=== PATIENT | male | born 1990 | race Caucasian/White ===

== ENCOUNTER 2017-12-10 11:16 | Emergency (ER) | payer OTHER ==
[~2017-12-10] VITALS: Ht 167.6 cm; Wt 94.8 kg
[2017-12-10 11:22] VITALS: BP 121/78
[2017-12-10] MEDS ORDERED: CLONAZEPAM 1 MG1 M1 PO ×2 (11:24→11:55)
== END 2017-12-10 12:15 | disposition home or self-care (01) ==
LOC: ER 11:16
DX: F41.9 Anxiety disorder, unspecified (principal); Z76.0 Encounter for issue of repeat prescription; Z88.6 Allergy status to analgesic agent

== ENCOUNTER 2018-05-20 13:53 | Emergency (ER) | payer BC, OTHER ==
[~2018-05-20] VITALS: Ht 182.9 cm; Wt 99.8 kg
[~2018-05-20 13:53] MED LIST: CLONAZEPAM 1 MG1 M1 PO
[2018-05-20] MEDS ORDERED: CLONAZEPAM 1 MG1 M1 PO (14:30)
[2018-05-20 15:03] VITALS: BP 131/95
== END 2018-05-20 14:57 | disposition home or self-care (01) ==
LOC: ER 13:53
DX: F41.9 Anxiety disorder, unspecified (principal); Z76.0 Encounter for issue of repeat prescription; F17.200 Nicotine dependence, unspecified, uncomplicated; Z88.8 Allergy status to other drugs, medicaments and biological substances

== ENCOUNTER 2018-08-02 00:22 | Emergency (ER) | payer BC, OTHER ==
[~2018-08-02] VITALS: Ht 185.4 cm; Wt 104.3 kg
[2018-08-02] MEDS ORDERED: EPIDIOLEX100 MG/1 M PO (00:35)
[2018-08-02] MEDS ORDERED: XANAX1 MG PO (01:37)
[2018-08-02] MEDS ORDERED: CLONAZEPAM 1 MG1 M1 PO (02:14)
[2018-08-02 02:38] VITALS: BP 132/76
== END 2018-08-02 02:41 | disposition home or self-care (01) ==
LOC: ER 00:22
DX: F41.9 Anxiety disorder, unspecified (principal); Z76.0 Encounter for issue of repeat prescription; F17.210 Nicotine dependence, cigarettes, uncomplicated; Z88.6 Allergy status to analgesic agent

== ENCOUNTER 2019-01-17 08:56 | Emergency (ER) | payer BC, OTHER ==
[~2019-01-17] VITALS: Ht 185.4 cm; Wt 101.6 kg
[~2019-01-17 08:56] MED LIST changes: +EPIDIOLEX100 MG/1 M PO; +XANAX1 MG PO
[2019-01-17] MEDS ORDERED: CLONAZEPAM 1 MG1 M1 PO (09:00)
[2019-01-17 09:55] LABS: URINE BILIRUBIN NEGATIVE (Negative); URINE BLOOD NEGATIVE (Negative); URINE CLARITY SL CLOUDY; URINE COLOR YELLOW; URINE GLUCOSE-RANDOM* NEGATIVE (Negative); URINE KETONES NEGATIVE (Negative); URINE LEUKOCYTES-REFLEX NEGATIVE (Negative); URINE NITRITE-REFLEX NEGATIVE (Negative); URINE PROTEIN (DIPSTICK) NEGATIVE (Negative); URINE SPECIFIC GRAVITY 1.015 (1.005-1.035); URINE UROBILINOGEN 0.2 E.U./dl (0.2-1.0)
[2019-01-17 10:19] LABS: ABSOLUTE NEUTROPHILS 5.7 thou/uL (1.4-8.2); BASOPHILS 1.2 % (0.0-2.0); EOSINOPHILS 3.5 % (0.0-3.0); HEMATOCRIT 45.2 % (42.0-52.0); HEMOGLOBIN 15.6 gm/dL (14.0-18.0); MCH 29.6 pg (26.0-34.0); MCHC 34.6 g/dL (28.0-37.0); MCV 85.5 fL (80.0-100.0); MONOCYTES 6.9 % (1.0-8.0); PLATELET COUNT 230 thou/uL (150-400); POLYS 67.4 % (36.0-66.0); RBC 5.29 mil/uL (4.50-6.00); RDW 13.7 % (10.5-14.5); WBC 8.4 thou/uL (4.0-11.0)
[2019-01-17 10:27] LABS: CALCIUM 8.8 mg/dL (8.5-10.1); CREATININE 0.9 mg/dL (0.7-1.3)
[2019-01-17 10:33] LABS: ALBUMIN 3.8 g/dL (3.4-5.0); TOTAL BILIRUBIN 0.6 mg/dL (<0.1-1.0); TOTAL PROTEIN 7.3 g/dL (6.4-8.2)
[2019-01-17] MEDS ORDERED: NAPROSYN500 MG PO (11:20)
[2019-01-17] MEDS ORDERED: PREDNISONE 20 M20 MG PO (11:20)
[2019-01-17] MEDS ORDERED: LIORESAL 10 MG10 MG PO (11:20)
[2019-01-17 11:27] VITALS: BP 130/89
== END 2019-01-17 11:28 | disposition home or self-care (01) ==
LOC: ER 08:56
PROVIDERS: Emergency Medicine
DX: M54.31 Sciatica, right side (principal); F41.9 Anxiety disorder, unspecified; Z88.6 Allergy status to analgesic agent

== ENCOUNTER 2019-04-19 19:32 | Emergency (ER) | payer BC, OTHER ==
[~2019-04-19] VITALS: Ht 185.4 cm; Wt 99.8 kg
[~2019-04-19 19:32] MED LIST changes: +LIORESAL 10 MG10 MG PO; +NAPROSYN500 MG PO; +PREDNISONE 20 M20 MG PO
[2019-04-19 20:35] VITALS: BP 129/81
== END 2019-04-19 20:37 | disposition home or self-care (01) ==
LOC: ER 19:32
DX: F41.0 Panic disorder [episodic paroxysmal anxiety] (principal); Z88.6 Allergy status to analgesic agent

== ENCOUNTER 2019-11-28 16:53 | Emergency (ER) | payer OTHER ==
[~2019-11-28] VITALS: Ht 185.4 cm; Wt 99.8 kg
[2019-11-28] MEDS ORDERED: CLONAZEPAM 1 MG1 M1 PO (17:04)
[2019-11-28 17:47] LABS: ABSOLUTE NEUTROPHILS 7.5 thou/uL (1.4-8.2); BASOPHILS 0.6 % (0.0-2.0); EOSINOPHILS 1.6 % (0.0-3.0); HEMOGLOBIN 16.1 gm/dL (14.0-18.0); LYMPHOCYTES 21.5 % (24.0-44.0); MCH 29.6 pg (26.0-34.0); MCHC 34.4 g/dL (28.0-37.0); MCV 86.1 fL (80.0-100.0); MONOCYTES 3.8 % (1.0-8.0); PLATELET COUNT 236 thou/uL (150-400); POLYS 72.5 % (36.0-66.0); RBC 5.45 mil/uL (4.50-6.00); RDW 13.3 % (10.5-14.5); WBC 10.3 thou/uL (4.0-11.0)
[2019-11-28 17:55] LABS: ANION GAP 8 mmol/L (7-16); BUN 14 mg/dL (7-18); CHLORIDE 101 mmol/L (98-107); CO2 27 mmol/L (21-32); CREATININE 1.1 mg/dL (0.7-1.3); GLUCOSE 140 mg/dL (74-106); POTASSIUM 4.5 mmol/L (3.5-5.1); SODIUM 136 mmol/L (136-145)
[2019-11-28 18:04] LABS: SGOT 28 U/L (15-37); SGPT 26 U/L (30-65); TOTAL BILIRUBIN 0.5 mg/dL (0.2-1.0); TOTAL PROTEIN 7.8 g/dL (6.4-8.2); TROPONIN-I <0.06 ng/mL (<0.06)
[2019-11-28] MEDS ORDERED: ATIVAN1 M1 PO (19:03)
[2019-11-28] MEDS ORDERED: KLONOPIN1 MG PO (19:09)
[2019-11-28 19:14] VITALS: BP 105/65
--- NOTE | 2019-11-29 07:46 | EKG ---
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
== END 2019-11-28 19:14 | disposition home or self-care (01) ==
LOC: ER 16:53
PROVIDERS: Physician Assistant
DX: F41.0 Panic disorder [episodic paroxysmal anxiety] (principal); R20.2 Paresthesia of skin; Z98.890 Other specified postprocedural states; Z79.899 Other long term (current) drug therapy; Z88.8 Allergy status to other drugs, medicaments and biological substances